=== PATIENT | male | born 1980 | race African-American/Black ===

== ENCOUNTER 2016-12-18 09:01 | Emergency (ER) | payer MEDICARE, OTHER ==
[2016-12-18 09:37] LABS: EOSINOPHILS % 2.7 % (0.0-6.8); MEAN CORPUSCULAR HEMOGLOBIN 32.5 pg (28.0-34.0); MEAN CORPUSCULAR VOLUME 94.8 fl (80.0-100.0); MONOCYTES % 6.8 % (0.0-11.0); NEUTROPHILS # 3.6 # k/uL (1.4-7.7)
[2016-12-18] MEDS ORDERED: Lidocaine 1% 5ml(IM or SUTURE)(PAIN CLINIC) ONE (09:50)
[2016-12-18] MEDS ORDERED: SODIUM BICARBONATE 2.4 MEQ VIAL INJ ONE (09:51)
[2016-12-18 09:52] LABS: eGFR (African) > 60; eGFR (Non-African) > 60
--- NOTE | 2016-12-18 10:54 | ED Physician Documentation ---
Lower Extremity Problem - HISTORIAN Historian: patient - HPI Stated Complaint: swollen left great toe Chief Complaint: Lower Extremity Problem Location of Injury: L leg Onset: days ago (3) Timing: better Recent Injury: No Quality: pain, swelling, tenderness Exacerbated By: movement Relieved By: nothing Further Comments: yes (36 year old male patient presents with left foot and lower leg pain, swelling and redness. Patient states the redness started 3 days ago in his entire left leg. Patient reports the redness has become better , but it hurts to walk.) - ROS CONST: no problems MS/SKIN/LYMPH: leg swelling (left), leg pain (left ) CVS/RESP: none GI/: none EYES/ENT: none NERUO/PSYCH: denies: headache - PAST HX Past History: other (cerebral palsy, hammertoe) Allergies/Adverse Reactions: Allergies Allergy/AdvReac Type Severity Reaction Status Date / Time No Known Allergies Allergy Verified 12/18/16 09:19 Home Medications: Ambulatory Orders Medication Instructions Recorded NK [NK] 03/16/14 - SOCIAL HX Smoking History: cigarettes Alcohol Use: heavy - FAMILY HX Family History: denies: none - VITAL SIGNS Vital Signs: Vital Signs Temp Pulse Resp BP Pulse Ox 145/89 07/06/16 15:11 - REVIEWED ASSESSMENTS Nursing Assessment Reviewed: Yes Vitals Reviewed: Yes Progress - Progress Progress: DDIMR elevated; will progress with CT PE protocol. CT negative for PE. Out patient order provided for US - venous duplex LLE, scheduled for 1300 tomorrow. Reviewed discharge instructions with patient, verbalized understanding. ED Results Lab/Radiology - Lab Results Lab Results: Lab Results 12/18/16 12/18/16 12/18/16 10:51 09:30 09:30 WBC 5.00 K/ul K/ul (4.00-12.00) RBC 4.17 M/ul M/ul (3.90-5.20) Hgb 13.5 g/dL g/dL (12.0-18.0) Hct 39.5 % % (37.0-53.0) MCV 94.8 fl fl (80.0-100.0) MCH 32.5 pg pg (28.0-34.0) MCHC 34.3 g/dL g/dL (30.0-36.0) RDW 12.4 % % (11.3-14.3) Plt Count 236 K/mm3 K/mm3 (130-400) Neut % (Auto) 72.1 % % (39.0-79.0) Lymph % (Auto) 14.6 % L % (16.0-50.0) Daggett % (Auto) 6.8 % % (0.0-11.0) Eos % (Auto) 2.7 % % (0.0-6.8) Baso % (Auto) 1.0 (0.0-1.5) Neut # 3.6 # k/uL # k/uL (1.4-7.7) Lymph # 0.7 # k/uL # k/uL (0.6-4.0) Daggett # 0.3 # k/uL # k/uL (0.0-0.9) Eos # 0.1 # k/uL # k/uL (0.0-0.6) Baso # 0.0 # k/uL # k/uL (0.0-0.5) Reactive Lymphs % 2.8 % % (0.0-5.0) Reactive Lymphs # 0.1 # k/uL # k/uL (0.0-0.8) D-Dimer 1047 ng/mL H ng/mL (6.0-682) Sodium 138 mmol/L mmol/L (136-145) Potassium 3.5 mmol/L mmol/L (3.5-5.0) Chloride 101 mmol/L mmol/L (98-110) Carbon Dioxide 35 mmol/L H mmol/L (20-32) BUN 15 mg/dL mg/dL (10-26) Creatinine 0.8 mg/dL mg/dL (0.4-1.5) Estimated Creat Clear 132 Est GFR ( Amer) > 60 (60 - ) Est GFR (Non-Af Amer) > 60 (60 - ) Glucose 94 mg/dL mg/dL (70-99) Calcium 9.8 mg/dL mg/dL (8.5-10.5) Total Bilirubin 0.6 mg/dL mg/dL (0.2-1.2) AST 41 U/L U/L (0-41) ALT 32 U/L U/L (0-45) Alkaline Phosphatase 63 U/L U/L (46-116) Total Protein 7.8 g/dL g/dL (6.0-8.5) Albumin 4.5 g/dL g/dL (3.0-5.5) - Radiology Radiology Impressions: CT angiography of the chest History: Elevated d-dimer and left lower extremity edema Findings: Transverse chest sections are obtained after the 88 mL intravenous omnipaque 350 from which multiplanar 3 dimensional maximum intensity projections are obtained. There is no evidence of acute pulmonary embolism in the central pulmonary arteries. However, the subsegmental arteries cannot be evaluated as the exam was performed during the systemic arterial rather than pulmonary arterial phase of vascular opacification. A 3 mm lateral right lower lobe pulmonary nodule is observed. The lungs are otherwise clear. No pleural effusions are identified. Mediastinal structures are normal. Abdomen sections reveal calcified splenic granulomas. Impression: 1. No evidence of central pulmonary embolism. Peripheral subsegmental pulmonary emboli cannot be excluded as the exam was performed during the systemic arterial rather than pulmonary arterial phase of vascular opacification. 2. Probably benign 3 mm right lower lobe pulmonary nodule. Electronically signed on December 18, 2016 12:00:23 PM CDT by: Jensen Pereira - Orders Orders: ED Orders Category Date Time Status Place IV Lock 1T Care 12/18/16 09:[address] CHEST W/ CONTRAST Stat Exams 12/18/16 Taken CBC/PLATELET/DIFF Stat Lab 12/18/16 09:30 Completed CMP Stat Lab 12/18/16 09:30 Completed D DIMER Stat Lab 12/18/16 10:51 Completed Lidocaine 1% 5ml(IM or SUTURE) [Xylocaine] Med 12/18/16 09:50 Discontinued 50 mg .ROUTE .STK-MED ONE Sodium Bicarbonate [Neut] Med 12/18/16 09:51 Discontinued 2.4 meq INJ .STK-MED ONE cefTRIAXone SODIUM [Rocephin] 1 gm Med 12/18/16 10:29 Discontinued 0.9 % Sodium Chloride [Sodium Chloride] 50 ml IV NOW Lower Extremity Problem - EXAM General Appearance: mild distress Hips: bilateral hip: non-tender, normal inspection, normal range of motion Legs: bilateral: non-tender, normal inspection, normal range of motion, no evidence of injury Knees: bilateral: non-tender, normal inspection, normal range of motion, no evidence of injury Ankle: right: non-tender, normal inspection, left: soft tissue tenderness, swelling, other (left ankle with mild erythema), bilateral: normal range of motion, no evidence of injury Foot: right foot: non-tender, normal inspection, left foot: pain (pain with weight bearing), swelling (left ankle/foot area, mild), other (left great toe with erythem and hyperthermia), bilateral foot: normal range of motion, no evidence of injury Neuro/Tendon: normal sensation, normal motor functions, normal tendon functions , no evidence tendon injury EENT: eye inspection normal, no signs of dehydration, DARSHAN RESPIRATORY: no resp distress, chest non-tender, breath sounds normal CVS: reg rate & rhythm, heart sounds normal, equal pulses, no murmur, no gallop , PMI nml, no JVD, no friction rub, 24 VASCULAR: no vascular compromise, pulses full/equal NEURO/PSYCH: oriented X3, CN's nml as tested, motor nml, sensation nml SKIN: normal color, warm/dry, NR, INT, PAL, DR BACK: normal inspection, no CVA tenderness Discharge Clincal Impression: Cellulitis of left ankle Referrals: Robert Ferrera MD [Primary Care Provider] - 2 Days Additional Instructions: Return tomorrow for US of your left leg to rule out a DVT. line up worker your antibiotic and start it today. Rest elevation of left leg Return to Er or see your PCP if you symptoms become worse. Home Medications: Ambulatory Orders NK [NK] 03/16/14 Condition: Stable Disposition: 01 HOME, SELF-CARE Decision to Admit: NO Decision Time: 12:11
[2016-12-18] MEDS: cefTRIAXone SODIUM 1 GM in 0.9 % SODIUM CHLORIDE 50 ML IV ONE (11:54)
[2016-12-18 12:33] VITALS: BP 151/91
--- NOTE | 2016-12-18 21:50 | Diagnostic Imaging Report ---
PEYTON FOSTER (NOLBERTO) - ER~ [facility] [address] [facility].[address] [address] ~ ~ ~ ~ Report Submission Date: December 18, 2016 12:00:23 PM CDT Patient ~ Study Name: DEE PURDY ~ Date: December 18, 2016 11:30:56 AM CDT ~ Modality Type: CT\SR Gender: M ~ Description: CT CHEST W/ CONTRAST : 76 ~ Institution: [facility] Physician: PEYTON FOSTER) - SOL ~ ~ ~ ~ CT angiography of the chest History: Elevated d-dimer and left lower extremity edema Findings: Transverse chest sections are obtained after the 88 mL intravenous omnipaque 350 from which multiplanar 3 dimensional maximum intensity projections are obtained. There is no evidence of acute pulmonary embolism in the central pulmonary arteries. However, the subsegmental arteries cannot be evaluated as the exam was performed during the systemic arterial rather than pulmonary arterial phase of vascular opacification. A 3 mm lateral right lower lobe pulmonary nodule is observed. The lungs are otherwise clear. No pleural effusions are identified. Mediastinal structures are normal. Abdomen sections reveal calcified splenic granulomas. Impression: 1. No evidence of central pulmonary embolism. Peripheral subsegmental pulmonary emboli cannot be excluded as the exam was performed during the systemic arterial rather than pulmonary arterial phase of vascular opacification. 2. Probably benign 3 mm right lower lobe pulmonary nodule. ~ Electronically signed on December 18, 2016 12:00:23 PM CDT by: Jensen HITCHCOCK
== END 2016-12-18 12:29 | disposition home or self-care (01) ==
LOC: ED 09:01
DX: L03.116 Cellulitis of left lower limb (principal)
CPT/HCPCS: 71260; 80053; 85025; 85379; J0696; 96372; 99283; A9698; S1016

== ENCOUNTER 2016-12-19 12:50 | Outpatient (CLI) | payer MEDICARE, OTHER ==
[2016-07-06 15:16] VITALS: BP 145/89
--- NOTE | 2016-12-19 17:55 | Diagnostic Imaging Report ---
[facility] [address] [facility] [address] [place], [place]. [address] Report Submission Date: December 19, 2016 4:02:15 PM CDT Patient Study Name: DEE PURDY Date: December 19, 2016 1:06:42 PM CDT Modality Type: US Gender: M Description: UNILAT LTD STDY EXT VEINS : 76 Institution: [facility] Physician: MARK ANTHONY BUSTAMANTE Ultrasound venous Doppler of left lower extremity History: Elevated d-dimer and left lower extremity pain and swelling Findings: Visualized portions of the left external iliac, common femoral, profunda femoris, greater saphenous, femoral, popliteal, and posterior tibial veins exhibit normal respiratory phasicity, compressibility, and augmentation without denise scale or color Doppler evidence of deep venous thrombosis. Subcutaneous edema observed in the calf. Shotty left inguinal lymph nodes are noted. Impression: 1. No evidence of left lower extremity deep venous thrombosis. 2. Shotty left inguinal adenopathy is nonspecific in the setting of lower extremity subcutaneous edema or inflammation. Electronically signed on December 19, 2016 4:02:15 PM CDT by: Jensen HITCHCOCK
== END 2016-12-19 12:52 ==
LOC: RAD 12:50
PROVIDERS: ATTEND Emergency Medicine
DX: M79.89 Other specified soft tissue disorders (principal)
CPT/HCPCS: 93971

== ENCOUNTER 2016-12-22 10:14 | Emergency (ER) | payer MEDICARE, OTHER ==
[2016-12-22] MEDS: NEOMYCIN SU/BACITRAC ZN/POLY 1 EACH OINT.PACK TP ONE (10:42)
[2016-12-22 10:50] VITALS: BP 138/68
--- NOTE | 2016-12-22 10:52 | ED Physician Documentation ---
Lower Extremity Problem - HISTORIAN Historian: patient, other (old records) - HPI Stated Complaint: Sore to Left Great Toe Chief Complaint: Foot Injury Additional Information: Area first toe left foot drained this am. Clear fluid. Swelling in left leg now gone. Has had similar lesions left toe in the past. On keflex since 12/18 for same. Was to have had foot surgery in the past but has out it off. Wears non- customized shoes. Recent Injury: No - ROS CONST: no problems - PAST HX Past History: other (cerebral palsy; foot deformities) Allergies/Adverse Reactions: Allergies Allergy/AdvReac Type Severity Reaction Status Date / Time No Known Allergies Allergy Verified 12/18/16 09:19 Home Medications: Ambulatory Orders Medication Instructions Recorded Cephalexin [Keflex] 500 mg PO QID #40 capsule 12/18/16 - SOCIAL HX Smoking History: cigarettes Alcohol Use: other (daily) - FAMILY HX Family History: no significant history - VITAL SIGNS Vital Signs: Vital Signs Temp Pulse Resp BP Pulse Ox 97.8 F 82 18 151/74 98 12/22/16 10:15 12/22/16 10:15 12/22/16 10:15 12/22/16 10:15 12/22/16 10:15 - REVIEWED ASSESSMENTS Nursing Assessment Reviewed: Yes Vitals Reviewed: Yes ED Results Lab/Radiology - Orders Orders: ED Orders Category Date Time Status Apply occlusive dressing D Care 12/22/16 10:39 Active Neomycin Benton/Bacitrac Zn/Poly [Triple Antibiotic Med 12/22/16 10:39 Discontinued Ointment] 1 each TP NOW ONE Lower Extremity Problem - EXAM General Appearance: no distress Hips: bilateral hip: no evidence of injury Legs: left: other (no swelling), bilateral: no evidence of injury Ankle: bilateral: normal inspection, no evidence of injury Foot: left foot: nail injury (old. skin over ventral mid phalanx pink; open area damp with serous fluid) Neuro/Tendon: normal sensation, normal motor functions, normal tendon functions EENT: eye inspection normal RESPIRATORY: no resp distress JOINT: No: Nml gait/weight bearing (throws right leg forward, lumbar spine extended) VASCULAR: no vascular compromise (left DP 2+), pulses full/equal (left DP 2+. ) NEURO/PSYCH: CN's nml as tested, motor nml, sensation nml SKIN: warm/dry, normal color (except as noted above) BACK: other (movements w/o pain) Discharge Clincal Impression: Pressure ulcer Qualifiers: Pressure ulcer location: toe Pressure ulcer stage: stage 2 Laterality: left Qualified Code(s): L89.892 - Pressure ulcer of other site, stage 2 Clincal Impression: (Ruled Out): Cellulitis of toe of left foot Referrals: Robert Ferrera MD [Primary Care Provider] - 2 Days Additional Instructions: Continue taking Keflex. Keep the toe clean and dry. Elevate the left foot as much as possible the next 2-[address] Ferrera next week to discuss foot surgery and to further evaluate your toe. Home Medications: Ambulatory Orders Cephalexin [Keflex] 500 mg PO QID #40 capsule 12/18/16 Condition: Good Disposition: 01 HOME, SELF-CARE Decision to Admit: NO Decision Time: 10:36
== END 2016-12-22 10:48 | disposition home or self-care (01) ==
LOC: ED 10:14
DX: L89.892 Pressure ulcer of other site, stage 2 (principal)
CPT/HCPCS: 99283

== ENCOUNTER 2017-01-09 14:26 | Outpatient (CLI) | payer MEDICARE, OTHER | END 2017-01-09 14:31 | disposition home or self-care (01) | LOC: POD 14:26 | PROVIDERS: ATTEND Podiatrist | DX: B35.1 Tinea unguium (principal); L89.893 Pressure ulcer of other site, stage 3 | CPT/HCPCS: G0463 ==

== ENCOUNTER 2017-06-03 16:06 | Emergency (ER) | payer MEDICARE, OTHER ==
--- NOTE | 2017-06-03 16:14 | ED Physician Documentation ---
General Adult - HISTORIAN Historian: patient - HPI Stated Complaint: weakness in arm Chief Complaint: Upper Extremity Problem Onset: days ago (4) Timing: still present, better Severity: mild Modifying Factors: has moved to wrist Context: he states he was drinking on Sunday although he is not sure if he hurt it Quality: weakness from mid arm to hand Location: Left arm/hand Further Comments: yes (He is stating on Sat when he woke up he could not raise his left arm and hold it due to it feeling weak. He states that then starting today he has weakness feeling in his forearm and hand/wrist denies any pain. He has CP so he is does have weakness in his left leg "always" although he states in his arms his left is his "Strong arm but write with right hand" He denies any further issues. No speech issues no other weakness) Last known Well Date: 05/31/17 Last Known Well Time: 09:00 Last known Well Code/Unknown Code: Unknown - ROS CONST: no problems EYES/ENT: none CVS/RESP: none GI/: none MS/SKIN/LYMPH: none NEURO/PSYCH: denies: headache, fainting, dizziness - PAST HX Past History: other (CP ) Other History: other Surgeries/Procedures: other (right eye surgery "years ago" ) Immunizations: referred to PCP Allergies/Adverse Reactions: Allergies Allergy/AdvReac Type Severity Reaction Status Date / Time No Known Allergies Allergy Verified 06/03/17 16:16 Home Medications: Ambulatory Orders Medication Instructions Recorded NK [NK] 06/03/17 - SOCIAL HX Smoking History: non-smoker Alcohol Use: rarely Drug Use: none - FAMILY HX Family History: No - VITAL SIGNS Vital Signs: Vital Signs Temp Pulse Resp BP Pulse Ox 138/68 12/22/16 10:48 - REVIEWED ASSESSMENTS Nursing Assessment Reviewed: Yes Vitals Reviewed: Yes ED Results Lab/Radiology - Radiology Radiology Impressions: Examination: CT head without contrast History: Numbness Comparison exam: None available Technique: Noncontrast head CT protocol. Findings: Ventricles and sulci are appropriate for patient age. Cerebrocerebellar parenchyma demonstrates normal attenuation. No evidence for parenchymal hemorrhage. No evidence for mass or mass effect. No midline shift. No extra axial fluid collections. Partial visualization of the paranasal sinuses , mastoid air cells, orbits, skull and scalp without gross irregularity. Impression: No acute parenchymal process. No hemorrhage. Electronically signed on Jun 03, 2017 5:35:48 PM CONSUMER SCIENCE TEACHER by: Billy Luciano Examination: Plain film elbow History: Possible injury. Comparison exams: None provided Findings: 2 views of the elbow demonstrate normal cortical margins. No fracture. No dislocation. Radial head is within normal limits. No joint effusion Impression: No acute osseous abnormality. Electronically signed on Jun 03, 2017 5:40:41 PM CONSUMER SCIENCE TEACHER by: Billy Luicano Examination: Plain film shoulder History: Possible injury. Comparison exams: None provided Findings: 3 views of the shoulder demonstrate normal cortical margins. No evidence for fracture or dislocation. No soft tissue abnormality. Impression: No acute osseous process. Electronically signed on Jun 03, 2017 5:41:32 PM CONSUMER SCIENCE TEACHER by: Billy Luciano General Adult Physical Exam - PHYSICAL EXAM GENERAL APPEARANCE: no distress EENT: eye inspection normal NECK: normal inspection RESPIRATORY: no resp distress CVS: reg rate & rhythm, heart sounds normal, equal pulses, no murmur ABDOMEN: soft SKIN: warm/dry, normal color EXTREMITIES: other (can raise left arm - he does have obvious swelling in the left forearm and wrist area - no warmth - pulses are normal decreased strength in left hand only ) NEURO: oriented X3, CN's nml as tested Discharge Clincal Impression: Weakness Referrals: Robert Ferrera MD [Primary Care Provider] - 2 Days Comments: Discussed see PCP for any further work up Any change or increase in symptoms return to ER Condition: Stable Disposition: 01 HOME, SELF-CARE Decision to Admit: NO Date of Decison to Admit: 06/03/17 Decision Time: 17:49
[2017-06-03 16:52] LABS: BASOPHILS % 1.2 (0.0-1.5); EOSINOPHILS % 3.1 % (0.0-6.8); MEAN CORPUSCULAR HEMOGLOBIN 31.6 pg (28.0-34.0); MEAN CORPUSCULAR VOLUME 92.8 fl (80.0-100.0); NEUTROPHILS # 1.9 # k/uL (1.4-7.7)
[2017-06-03 17:51] LABS: eGFR (African) > 60; eGFR (Non-African) > 60
--- NOTE | 2017-06-03 17:54 | Diagnostic Imaging Report ---
JEFF SPARROW [facility] [place] [facility] [address] [facility] [address] [place], [place]. [address] Report Submission Date: Jun 03, 2017 5:35:48 PM FUNERAL PREARRANGEMENT COUNSELOR Patient Study Name: DEE PURDY Date: Jun 03, 2017 4:58:37 PM FUNERAL PREARRANGEMENT COUNSELOR Modality Type: CT\SR Gender: M Description: CT BRAIN W/O CONTRAST : 76 Institution: [facility] [place] [facility] Physician: JEFF SPARROW Examination: CT head without contrast History: Numbness Comparison exam: None available Technique: Noncontrast head CT protocol. Findings: Ventricles and sulci are appropriate for patient age. Cerebrocerebellar parenchyma demonstrates normal attenuation. No evidence for parenchymal hemorrhage. No evidence for mass or mass effect. No midline shift. No extra axial fluid collections. Partial visualization of the paranasal sinuses , mastoid air cells, orbits, skull and scalp without gross irregularity. Impression: No acute parenchymal process. No hemorrhage. Electronically signed on Jun 03, 2017 5:35:48 PM FUNERAL PREARRANGEMENT COUNSELOR by: Billy HITCHCOCK
--- NOTE | 2017-06-03 17:55 | Diagnostic Imaging Report ---
JEFF SPARROW [facility] [address] [facility] [address] [place], [place]. [address] Report Submission Date: Jun 03, 2017 5:41:32 PM DINKEY SKINNER Patient Study Name: DEE PURDY Date: Jun 03, 2017 5:15:25 PM DINKEY SKINNER Modality Type: CR Gender: M Description: SHOULDER : 76 Institution: [facility] Physician: JEFF SPARROW Examination: Plain film shoulder History: Possible injury. Comparison exams: None provided Findings: 3 views of the shoulder demonstrate normal cortical margins. No evidence for fracture or dislocation. No soft tissue abnormality. Impression: No acute osseous process. Electronically signed on Jun 03, 2017 5:41:32 PM DINKEY SKINNER by: Billy HITCHCOCK
--- NOTE | 2017-06-03 17:55 | Diagnostic Imaging Report ---
JEFF SPARROW [facility] [address] [facility] [address] [place], [place]. [address] Report Submission Date: Jun 03, 2017 5:40:41 PM SENIOR MAINFRAME DEVELOPER Patient Study Name: DEE PURDY Date: Jun 03, 2017 5:08:48 PM SENIOR MAINFRAME DEVELOPER Modality Type: CR Gender: M Description: UPPER EXTREMITY : 76 Institution: [facility] Physician: JEFF SPARROW Examination: Plain film elbow History: Possible injury. Comparison exams: None provided Findings: 2 views of the elbow demonstrate normal cortical margins. No fracture. No dislocation. Radial head is within normal limits. No joint effusion Impression: No acute osseous abnormality. Electronically signed on Jun 03, 2017 5:40:41 PM SENIOR MAINFRAME DEVELOPER by: Billy HITCHCOCK
[2017-06-03 18:03] VITALS: BP 186/97
== END 2017-06-03 18:02 | disposition home or self-care (01) ==
LOC: ED 16:06
DX: R53.1 Weakness (principal)
CPT/HCPCS: 70450; 73030; 73070; 80053; 85025; 85379; 99283

== ENCOUNTER 2017-12-26 10:12 | Emergency (ER) | payer MEDICARE, OTHER ==
[2017-12-26 10:23] VITALS: BP 120/107
--- NOTE | 2017-12-26 11:55 | ED Physician Documentation ---
General Adult - HISTORIAN Historian: patient - HPI Stated Complaint: Bilat Ankle pain Chief Complaint: General Adult Additional Information: Right ankle and foot pain for a week, worse with weight bearing. Denies injury. Left foot has been hurting for a couple of days. Took 400 mg ibuprofen twice yesterday; dose before bedtime helped. Thinks pain started after he wore tennis shoes to work instead of his usual boots that give him more support. Says right foot is always a little swollen. HX CP. - ROS CONST: no problems - PAST HX Past History: other (CP) Allergies/Adverse Reactions: Allergies Allergy/AdvReac Type Severity Reaction Status Date / Time No Known Allergies Allergy Verified 12/26/17 10:23 Home Medications: Ambulatory Orders Medication Instructions Recorded NK [NK] 06/03/17 - SOCIAL HX Smoking History: non-smoker - FAMILY HX Family History: No - VITAL SIGNS Vital Signs: Vital Signs Temp Pulse Resp BP Pulse Ox 97.3 F L 64 18 120/107 97 12/26/17 10:20 12/26/17 10:20 12/26/17 10:20 12/26/17 10:20 12/26/17 10:20 - REVIEWED ASSESSMENTS Nursing Assessment Reviewed: Yes Vitals Reviewed: Yes Progress - Progress Progress: Patient Study Name: DEE PURDY Date: Dec 26, 2017 11:25:53 AM CDT Modality Type: DX Gender: M Description: LOWER EXTREMITY : 76 Institution: [facility] Physician: TREY CEBALLOS Examination: Plain film feet History: BILAT FEET, PAIN IN BOTH FEEL FOR OVER A WEEK IN THE AREA OF THE TARSALS AND CALCANEUS (Hx) Findings: 3 views of the right and left foot foot demonstrates articular degenerative changes. Right foot hallux valgus deformity. Bilateral pes planus. No soft tissue abnormality. Impression: Bilateral pes planus. No fracture. Right hallux valgus deformity. Electronically signed on Dec 26, 2017 11:50:41 AM CDT by: Billy Luciano ED Results Lab/Radiology - Orders Orders: ED Orders Category Date Time Status BILAT FEET 3 VIEW [RAD] Stat Exams 12/26/17 Ordered General Adult Physical Exam - PHYSICAL EXAM GENERAL APPEARANCE: mild distress EENT: eye inspection normal, ENT inspection normal NECK: normal inspection RESPIRATORY: no resp distress BACK: normal inspection SKIN: warm/dry EXTREMITIES: non-tender, edema (right foot. skin intact. Karl PT's 2+. No bruisin or discoloration either foot. Longstanding bony deformities. ) NEURO: CN's nml as tested, sensation nml, cognition normal Discharge Clincal Impression: Bilateral ankle pain Qualifiers: Chronicity: acute Qualified Code(s): M25.571 - Pain in right ankle and joints of right foot; M25.572 - Pain in left ankle and joints of left foot; M25.572 - Pain in left ankle and joints of left foot Referrals: Robert Ferrera MD [Primary Care Provider] - 2 Days Additional Instructions: Your x-rays did not show any fractures. Ice or gentle heat to the sore area for 30 minutes of each hour you are awake. Keep the feet elevated as much as possible for the next few days. Wear your boots. You can take 1000 mg tylenol every 8 hours if needed for discomfort. You can take 600 mg of ibuprofen with food 3-4 times a day. Condition: Good Disposition: 01 HOME, SELF-CARE Decision to Admit: NO Decision Time: 12:00
--- NOTE | 2017-12-26 16:50 | Diagnostic Imaging Report ---
TREY CEBALLOS [facility] [address] [facility] [address] [address] Report Submission Date: Dec 26, 2017 11:50:41 AM CDT Patient Study Name: DEE PURDY Date: Dec 26, 2017 11:25:53 AM CDT Modality Type: DX Gender: M Description: LOWER EXTREMITY : 76 Institution: [facility] Physician: TREY CEBALLOS Examination: Plain film feet History: BILAT FEET, PAIN IN BOTH FEEL FOR OVER A WEEK IN THE AREA OF THE TARSALS AND CALCANEUS (Hx) Findings: 3 views of the right and left foot foot demonstrates articular degenerative changes. Right foot hallux valgus deformity. Bilateral pes planus. No soft tissue abnormality. Impression: Bilateral pes planus. No fracture. Right hallux valgus deformity. Electronically signed on Dec 26, 2017 11:50:41 AM CDT by: Billy HITCHCOCK
== END 2017-12-26 12:20 | disposition home or self-care (01) ==
LOC: ED 10:12
DX: M25.571 Pain in right ankle and joints of right foot (principal); M25.572 Pain in left ankle and joints of left foot
CPT/HCPCS: 99283